=== PATIENT | male | born 1960 | race Caucasian/White ===

== ENCOUNTER 2017-06-15 20:47 | Inpatient (IN) | payer BC ==
[2017-06-15] MEDS ORDERED: Fentanyl 100 MCG/2 ML VIAL ONE (21:02)
[2017-06-15] MEDS ORDERED: Heparin 10,000 UNITS/1 ML VIAL ONE ×2 (21:19→22:02)
[2017-06-15] MEDS ORDERED: Heparin 1000 UNIT/NS 500ML(OR) 500 ML ONE (21:19)
[2017-06-15] MEDS ORDERED: Nitroglycerin 100MG/250ML BOT 250 ML ONE (21:35)
[2017-06-15] MEDS ORDERED: Heparin 1000 UNIT/NS 500ML(OR) 1,000 ML ONE (22:03)
[2017-06-15] MEDS ORDERED: Nitroglycerin 0.4 MG TAB 1 EACH SL PRN (22:27)
[2017-06-15] MEDS ORDERED: Milk Of Magnesia 30 ML UDCUP PO PRN (22:27)
[2017-06-15] MEDS ORDERED: Acetaminophen/Codeine 30-300mg Tablet PO PRN (22:27)
[2017-06-15] MEDS ORDERED: Morphine 4 MG/ML VIAL SLOW IVP PRN (22:27)
[2017-06-15] MEDS ORDERED: traMADol HCl 50 MG TAB PO PRN (22:27)
[2017-06-15] MEDS ORDERED: Mag-Al 1200 mg/1200 mg/30 ML UDCUP PO PRN (22:27)
[2017-06-15] MEDS ORDERED: Insulin Regular 300 UNITS/3 ML VIAL SC PRN (23:12)
[2017-06-15] MEDS ORDERED: Dextrose 50% Abboject 50 ML SYRINGE IVP PRN (23:12)
[2017-06-15] MEDS ORDERED: Dextrose 5% in Water 1,000 ML IV PRN (23:12)
[2017-06-15] MEDS: Sodium Chloride 0.9% 1,000 ML IV SCH (23:13)
[2017-06-15] MEDS ORDERED: Lisinopril 2.5 MG TAB PO SCH (23:15)
[2017-06-15 23:17] VITALS: BMI 45.9
[2017-06-15 23:26] LABS: Troponin I 11.103 ng/mL (< 0.028)
--- NOTE | 2017-06-16 02:20 | HP ---
DATE OF SERVICE: 06/15/2017 REASON FOR ADMISSION: Acute myocardial infarction. HISTORY OF PRESENT ILLNESS: Mr. Melara is a 57-year-old gentleman. He stated he had been started davis ving chest pain about 4 hours prior to the arrival in the emergency room and an episode of severe sub sternal pain going across his chest. He presented to the emergency room in [place], found to have a n acute inferior myocardial infarction. He was transferred to this institution. The patient did not have a previous cardiac history. He said he underwent some cardiac evaluation a couple of years ago, which was unrevealing. He was not having chest pain prior to this. Otherwise, he had been in fair health. He does have diabetes, hypertension, and obesity. He does not use tobacco. There is no family history of heart disease. MEDICATIONS: He takes: 1. Lisinopril. 2. Simvastatin. 3. Glucophage was started recently. Otherwise, the patient has been in fairly good physical condition but had limitations mostly due to t he obesity as mentioned above. SOCIAL HISTORY: No alcohol or tobacco. FAMILY HISTORY: Negative for heart disease. REVIEW OF SYSTEMS: Constitutional: No weight loss. Vision: No changes. Hearing: No changes. Pu lmonary: No cough or wheezing. Cardiac: As outlined above. Gastrointestinal: No nausea, vomiting , or diarrhea. Skin: No rashes. Neurologic: Unilateral weakness and numbness. Psychiatric: No un usual depression or anxiety. Hematologic: No unusual bruising. Genitourinary: No burning with uri nation. PHYSICAL EXAMINATION: GENERAL: This is a 57-year-old gentleman in moderate distress with continued chest pain. VITAL SIGNS: Blood pressure is 130/70, pulse was 40, sinus bradycardia. EYES: Sclerae nonicteric. Mouth: Mucous membranes are moist. NECK: Supple, no lymphadenopathy. LUNGS: Clear, no wheezing, rales, or rhonchi. CARDIOVASCULAR: Distant heart sounds, but no murmur, rub, or gallop. ABDOMEN: Soft, nontender, no hepatosplenomegaly, extremely obese. EXTREMITIES: No clubbing or cyanosis. Mild edema. SKIN: Warm and dry. LABORATORY AND X-RAY FINDINGS: EKG showed severe ST elevation in the inferior leads with sinus lilly cardia on the monitor. ASSESSMENT: 1. Acute inferior myocardial infarction. 2. Obesity, 290 pounds, 5 feet 8 inches, body mass index to be calculated but very high. 3. Diabetes. 4. Hypertension. PLAN: 1. Discussed options with the patient, the best option would be to go straight to the cardiac cathet erization lab. Discussed risks, stroke, heart attack, iodine allergy, loss of blood supply to the le g or kidney, stent thrombosis, stent restenosis. The patient understood and wished to proceed. 2. The patient had been given aspirin and Plavix in [place].
[2017-06-16 04:36] LABS: #Basophils 0.1 thou/uL (0.0-0.2); #Eosinphils 0.1 thou/uL (0.0-0.7); #Lymphocytes 2.4 thou/uL (1.20-3.40); #Monocytes 0.6 thou/uL (0.11-0.59); #Neutrophils 5.7 thou/uL (1.40-6.50); %Basophils 0.6 % (0.0-1.0); %Eosinophils 0.9 % (0.0-10.0); %Lymphocytes 27.1 % (21.0-51.0); Hematocrit 45.5 % (42.0-52.0); Mean Platelet Volume 7.7 fL (7.4-10.4); Red Blood Cell (RBC) Count 4.89 mill/uL (4.70-6.10); White Blood Cell (WBC) Count 8.8 thou/uL (4.8-10.8)
[2017-06-16 04:52] LABS: ALT (SGPT) 43 U/L (8-55); AST (SGOT) 143 U/L (5-34); Alkaline Phosphatase 108 U/L (40-150); Anion Gap 14 mmol/L (10-20); BUN (Urea Nitrogen) 12 mg/dL (8.4-25.7); Bilirubin, Total 0.7 mg/dL (0.2-1.2); Calc. Creatinine Clearance 184 mL/min (70-130); Calcium 8.7 mg/dL (7.8-10.44); Carbon Dioxide 21 mmol/L (22-29); Chloride 101 mmol/L (98-107); Cholesterol 140 mg/dl (< 200 Desired); Estimated GFR-MDRD Greater than 90; LDL Cholesterol, Calculated 54 mg/dL; Protein, Total 6.4 g/dL (6.0-8.3)
[2017-06-16] MEDS ORDERED: TICAGRELOR 90 MG TABLET ONE (05:40)
[2017-06-16] MEDS: Lisinopril 10 MG TAB PO SCH ×2 (05:59→19:54)
[2017-06-16] MEDS: Carvedilol 3.125 MG TAB PO SCH ×2 (05:59→08:58)
--- NOTE | 2017-06-16 08:42 | PRG ---
DATE OF SERVICE: 06/16/2017 SUBJECTIVE: Mr. eMlara is doing better. He had some transient chest discomfort this morning, but EK G looked fine with no ST changes. I suspect it was the side branch of the right ventricular branch, which is causing some intermittent angina. This was "put stented across." OBJECTIVE: VITAL SIGNS: The patient's blood pressure 130/94, pulse 80. LUNGS: Clear. CARDIAC: Normal S1, S2. PERTINENT LABORATORY DATA: Troponin level was 84.25, potassium is 3.8, sodium 132. Blood glucose 13 2. LDL cholesterol is 54. ASSESSMENT: 1. Status post ST elevation infarction of the right coronary artery. 2. Ejection fraction of 45%. 3. Obesity. 4. Hyperlipidemia. 5. Hypertension. PLAN: 1. Increase lisinopril. 2. Increase carvedilol. 3. Aspirin and ticagrelor. 4. Statin. 5. If necessary, we may need to give some nitrates. He has probably had some chest pain from the si de branch stented across the right coronary distribution. 6. Cholesterol is a mixed hyperlipidemia with triglyceride of 291.
[2017-06-16] MEDS: Sodium Chloride 0.9% 1,000 ML IV SCH (08:56)
[2017-06-16] MEDS: TICAGRELOR 90 MG TABLET PO SCH ×2 (08:59→19:55)
[2017-06-16] MEDS ORDERED: Carvedilol 3.125 MG TAB PO SCH ×3 (09:00→21:00)
[2017-06-16] MEDS ORDERED: Lisinopril 2.5 MG TAB PO SCH ×2 (09:00)
--- NOTE | 2017-06-16 10:18 | CON ---
DATE OF CONSULTATION: 06/16/2017 REASON FOR CONSULTATION: ICU management. HISTORY OF PRESENT ILLNESS: This is a 57-year-old male who is currently in the hospital after having a myocardial infarction yesterday. He required coronary stent placement. He is feeling much better . PAST MEDICAL HISTORY: 1. Coronary artery disease. 2. Hypertension. 3. Hyperlipidemia. 4. Diabetes mellitus type 2. PAST SURGICAL HISTORY: Kidney stone removal. SOCIAL HISTORY: Nonsmoker, does not consume alcohol. He works in a longterm in [place], but lives in [place], [place]. ALLERGIES: None. MEDICATIONS PRIOR TO ADMISSION: Simvastatin and lisinopril. REVIEW OF SYSTEMS: Twelve point review of systems otherwise negative. PHYSICAL EXAMINATION: VITAL SIGNS: Temperature 98, pulse 79, respirations 14, O2 sats 97%, blood pressure 130/90. GENERAL: He is awake, alert, and in no distress. HEENT: Unremarkable. NECK: Without adenopathy, JVD, or bruits. LUNGS: Clear. CARDIOVASCULAR: S1, S2 regular, without murmur. ABDOMEN: Soft, nontender. EXTREMITIES: No clubbing, cyanosis, or edema. GENITOURINARY: He has a urinary catheter in place. LABORATORY DATA: White blood cell count is 8.8, hematocrit 45, platelet count 178. Sodium 133, pota ssium 3.8, chloride 101, CO2 21, BUN 12, creatinine 0.8, glucose 134. Troponin 84. ASSESSMENT: 1. Myocardial infarction secondary to 100% occlusion of the RCA, which has now been stented. 2. Diabetes mellitus. 3. Hypertension. 4. Hyperlipidemia. 5. Obesity. PLAN: Current care is being managed by Dr. Reid. I do not see anything at this point. I will be glad to follow as long as he is in ICU.
[2017-06-16 13:58] LABS: Critical Call Chem Troponin I RESULT DECREASING; Troponin I 57.132 ng/mL (< 0.028)
[2017-06-16] MEDS ORDERED: Lisinopril 5 MG TAB PO SCH (15:45)
[2017-06-16] MEDS: Carvedilol 6.25 MG TAB PO SCH (16:00)
[2017-06-16] MEDS: Atorvastatin Calcium 40 MG TAB PO SCH (19:54)
[2017-06-17] MEDS: Lisinopril 10 MG TAB PO SCH ×2 (08:29→21:01)
[2017-06-17] MEDS: TICAGRELOR 90 MG TABLET PO SCH ×2 (08:29→21:01)
[2017-06-17] MEDS: Carvedilol 6.25 MG TAB PO SCH (08:29)
--- NOTE | 2017-06-17 13:14 | PRG ---
DATE OF SERVICE: 06/17/2017 HISTORY: Mr. Melara is doing well today. PHYSICAL EXAMINATION: VITAL SIGNS: His blood pressure 123/75, pulse 70. GENERAL: He is awake and alert. No chest pain or pressure. LUNGS: Clear. CARDIAC: Normal S1 and normal S2. ABDOMEN: Soft, nontender. EXTREMITIES: There is no edema. ASSESSMENT: 1. Status post inferior myocardial infarction. Ejection fraction is 45%. 2. Obesity, morbid. 3. Hypertension. 4. Diabetes. 5. Hypercholesterolemia. PLAN: 1. Increase carvedilol. 2. Let him go home tomorrow morning. 3. Dietary consultation.
[2017-06-17] MEDS ORDERED: Enoxaparin Sodium 40 MG/0.4 ML SYRINGE SC SCH (13:15)
[2017-06-17] MEDS: Carvedilol 25 MG TAB PO SCH (16:36)
[2017-06-17] MEDS: Atorvastatin Calcium 40 MG TAB PO SCH (21:01)
[2017-06-18] MEDS: Carvedilol 25 MG TAB PO SCH (08:16)
[2017-06-18] MEDS: TICAGRELOR 90 MG TABLET PO SCH (08:16)
[2017-06-18] MEDS: Lisinopril 10 MG TAB PO SCH (08:16)
[2017-06-18] MEDS ORDERED: Enoxaparin Sodium 40 MG/0.4 ML SYRINGE SC SCH (09:00)
[2017-06-18 13:17] VITALS: BP 129/86; TEMP 97.9
[2017-06-18] MEDS ORDERED: Carvedilol 6.25 MG TAB PO SCH (17:00)
--- NOTE | 2017-06-18 21:57 | DIS ---
DATE OF DISCHARGE: 06/18/2017 FINAL DIAGNOSES: 1. Acute inferior myocardial infarction. 2. Obesity, body mass index of 45. 3. History of hypertension. 4. Diabetes type 2. 5. Hypercholesterolemia. 6. Obstructive sleep apnea. MEDICATIONS AT THE TIME OF DISCHARGE: 1. Carvedilol 12.5 mg twice daily. 2. Lisinopril 10 mg twice a day. 3. Brilinta 90 mg tablet 1 twice a day. 4. Aspirin 81 mg a day. 5. Atorvastatin 40 mg twice day. 6. Stop testosterone. 7. Stop naproxen. Follow up with me in a couple of weeks. Please see admission note for full details. HOSPITAL COURSE: Briefly, Mr. Melara is a 57-year-old man, presented with acute inferior myocardial infarction and was taken to the cardiac catheterization lab on an emergency basis, found to have the followin. Left main normal limits. The LAD has 50% mid LAD lesion. 2. There is a 90% distal lesion in the LAD, the area too small to graft or stent. 3. Circumflex, some aneurysmal dilatation, but no stenosis. 4. Right coronary 100% occluded in the proximal segment. We stented it with a 4.0 x 28 mm drug-coat ed stent and post-dilated with a 5 mm balloon up to 16 atmospheres. Ejection fraction is 45%. The patient had resolution of chest pain with anabaptist of blood flow, did stent across right ventr icular branches in the mid right coronary artery. LABORATORY: Hemoglobin was 15.6. The LDL cholesterol was 54, HDL cholesterol 28, low; triglyceride 291 indicating some mixed hyperlipidemia. The peak troponin level was 84.25. The patient did well following that. He did have some bradycardi a early this morning at 5:14. His says he snores very loudly and has some pauses in his breathi ng. Clinically, he has obstructive sleep apnea. He did have one nonconducted atrial beat this morni ng associated with what appears to be sleep apnea, looked at this with Dr. Klein and does not look lik e a significant electrical abnormality, the QRS duration is not wide, there is only one beat that was not conducted, may have been due to high vagal tone or other reasons associated with sleep apnea. T here is no daytime bradycardia. They did go to reduce the beta nelsy dose to 12.5 mg twice a day. The patient is doing well. He understands the critical importance of losing weight. He says he does not think he would wear a sleep mask (CPAP mask.) He understands he needs to go off testosterone. I will see him in the office at which time we will clear him to go back to work. Prognosis is fair. He critically loses weight to help control the diabetes and sleep apnea. He does not wish sleep study at this time.
== END 2017-06-18 14:42 | disposition home or self-care (01) | DRG 247 ==
LOC: CCL 20:47 → CCU 21:49 → 2NO 06-17 07:48
PROVIDERS: ADMIT Internal Medicine Cardiovascular Disease; ATTEND Internal Medicine Cardiovascular Disease
PROC: 0270346 Dilation of Coronary Artery, One Artery, Bifurcation, with Drug-eluting Intraluminal Device, Percutaneous Approach (ICD-10-PCS; principal; 2017-06-15)
PROC: 4A023N7 Measurement of Cardiac Sampling and Pressure, Left Heart, Percutaneous Approach (ICD-10-PCS; 2017-06-15)
PROC: B2111ZZ Fluoroscopy of Multiple Coronary Arteries using Low Osmolar Contrast (ICD-10-PCS; 2017-06-15)
PROC: B2151ZZ Fluoroscopy of Left Heart using Low Osmolar Contrast (ICD-10-PCS; 2017-06-15)
DX: I21.11 ST elevation (STEMI) myocardial infarction involving right coronary artery (principal); Z68.42 Body mass index [BMI] 45.0-49.9, adult; I10 Essential (primary) hypertension; I25.118 Atherosclerotic heart disease of native coronary artery with other forms of angina pectoris; E11.9 Type 2 diabetes mellitus without complications; E66.01 Morbid (severe) obesity due to excess calories; G47.33 Obstructive sleep apnea (adult) (pediatric); R00.1 Bradycardia, unspecified; E78.2 Mixed hyperlipidemia
CPT/HCPCS: 36415; 36416; 76942; 80053; 80061; 84484; 85025; 85347; 92941; 93005; 93010; 93458; 93798; C1769; C1874; C1887; C9606; J1644; J1650; J1815; J2270; J3010